=== PATIENT | male | born 1955 | race Caucasian/White ===

== ENCOUNTER 2025-08-19 07:00 | Outpatient (RCR) | payer MEDICARE, SELFPAY | END 2025-08-19 23:59 | disposition home or self-care (01) | LOC: PT.CARL 07:00 | PROVIDERS: Visit Provider Nurse Practitioner | DX: M54.2 Cervicalgia (principal) | CPT/HCPCS: 97110; 97112; 97140; 97161; 97530 ==

== ENCOUNTER 2025-09-15 15:30 | Outpatient (RCR) | payer MEDICARE, SELFPAY | END 2025-09-15 23:59 | disposition home or self-care (01) | LOC: PT.CARL 15:30 | PROVIDERS: Visit Provider Nurse Practitioner | DX: M54.2 Cervicalgia (principal) | CPT/HCPCS: 20560; 97035; 97110; 97112; 97530 ==

== ENCOUNTER 2025-09-24 08:55 | Outpatient (RCR) | payer MEDICARE, SELFPAY | END 2025-09-28 10:49 | disposition home or self-care (01) | LOC: PT.CARL 08:55 | PROVIDERS: Visit Provider Nurse Practitioner | DX: M54.2 Cervicalgia (principal) | CPT/HCPCS: 97110 ==